=== PATIENT | male | born 1965 | race Two or more races ===

== ENCOUNTER 2019-02-05 12:22 | Emergency (ER) | payer SELFPAY ==
--- NOTE | 2019-02-05 12:40 | PDOC ---
Rapid Medical Evaluation Chief Complaint: CVA/TIA Time Seen by Provider: 02/05/19 12:33 Medical Evaluation: Allergies Allergy/AdvReac Type Severity Reaction Status Date / Time No Known Allergies Allergy Verified 02/05/19 12:32 02/05/19 12:34 Pt presents for difficulty moving his R lower leg and L arm for 6 hours. Was seen by Dr. Schroeder and was concerned he may be having a stroke/spinal fluid leak? Requesting a head CT. Hx of CVA in past Exam: neurologically intact with no focal findings. Strength 5/5 b/l. (+) straight leg raise test on the R Orders: labs, ekg Pt to proceed to the ER for further evaluation Discharge Disposition - Diagnosis Leg weakness - Referrals - Patient Instructions - Post Discharge Activity
[2019-02-05 12:41] VITALS: BMI 25.8
--- NOTE | 2019-02-05 14:26 | PDOC ---
History of Present Illness - General Chief Complaint: CVA/TIA Stated Complaint: SENT BY PCP/FACE NUMBNESS Time Seen by Provider: 02/05/19 12:33 History Source: Patient Exam Limitations: No Limitations - History of Present Illness Initial Comments: 02/05/19 14:28 53-year-old male presents the emergency room for evaluation of right leg and left arm tingling and discomfort since awakening this morning. Patient went to his pain management doctor who prescribes him Flexeril along with Neurontin but states the pain management physician was concerned with possible stroke/bleed and sent him to the emergency room. Patient denies increasing weakness but states due to discomfort it causes him difficulty with ambulation. Patient denies any skin discoloration, lower extremity edema, or recent injury to the affected area. Is this a multiple visit Asthma Patient?: No Timing/Duration: other (Since awakening this morning) Severity: mild, moderate Associated Symptoms: reports: other Past History - Travel Traveled outside of the country in the last 30 days: No Close contact w/someone who was outside of country & ill: No - Past Medical History Allergies/Adverse Reactions: Allergies Allergy/AdvReac Type Severity Reaction Status Date / Time No Known Allergies Allergy Verified 02/05/19 12:32 COPD: No Thyroid Disease: Yes - Immunization History Immunization Up to Date: Yes - Psycho Social/Smoking Cessation Hx Smoking History: Never smoked Information on smoking cessation initiated: No Hx Alcohol Use: No Drug/Substance Use Hx: No Patient Lives Alone: No Lives with/in: spouse/SO Review of Systems - Review of Systems Able to Perform ROS?: No Is the patient limited Vincentian proficient: No Constitutional: No: Symptoms Reported HEENTM: No: Symptoms Reported Respiratory: No: Symptoms reported Cardiac (ROS): No: Symptoms Reported ABD/GI: No: Symptoms Reported : No: Symptoms Reported Musculoskeletal: Yes: See HPI, Muscle Pain Integumentary: No: Symptoms Reported Neurological: Yes: Tingling. No: Numbness, Paresthesia, Weakness Endocrine: No: Symptoms Reported Hematologic/Lymphatic: No: Symptoms Reported *Physical Exam - Vital Signs Last Vital Signs Temp Pulse Resp BP Pulse Ox 97.8 F 77 18 151/103 H 97 02/05/19 12:34 02/05/19 12:34 02/05/19 12:34 02/05/19 12:34 02/05/19 12:34 - Physical Exam General Appearance: Yes: Nourished, Appropriately Dressed. No: Apparent Distress Neck: positive: Normal Thyroid Respiratory/Chest: positive: Lungs Clear, Normal Breath Sounds. negative: Respiratory Distress, Accessory Muscle Use Cardiovascular: positive: Regular Rhythm, Regular Rate. negative: Murmur Gastrointestinal/Abdominal: positive: Soft. negative: Tenderness Musculoskeletal: negative: Vertebral Tenderness Extremity: positive: Normal Capillary Refill, Normal Inspection, Normal Range of Motion. negative: Tender, Pedal Edema, Calf Tenderness Integumentary: positive: Normal Color, Warm, Moist Neurologic: positive: Motor Strength 5/5 (Ambulatory with cane. 5+ straight leg raise of the right lower extremity and left arm). negative: Sensory Deficit Heart Score/ECG Review - ECG Intrepretation Rhythm: Regular Rhythm (rate 79, nsr) ED Treatment Course - LABORATORY CBC & Chemistry Diagram: 02/05/19 15:45 02/05/19 15:45 Medical Decision Making - Medical Decision Making 02/05/19 14:09 Chief complaint: Right leg and left arm pain upon awakening this a.m. causing him difficulty to ambulate. Patient went to his pain management since he has neuropathy and is taking Neurontin and Flexeril for the above. Patient sent here for evaluation for possible bleed versus infarct. Exam: Patient with no neurofocal deficits BP slightly elevated /no sensory deficits, EKG normal sinus rhythm Plan: Labs, EKG and head CT ordered 02/05/19 15:[address] negative for acute pathology. Patient awaiting labs. 02/05/19 17:03 Laboratory Tests 02/05/19 02/05/19 02/05/19 15:45 15:45 15:45 WBC 5.2 Hgb 16.6 Hct 48.9 Absolute Neuts (auto) 0.9 L Neutrophils % 17.4 L Lymphocytes % 52.2 H Monocytes % 26.1 H INR Sodium 136 Potassium 4.0 Carbon Dioxide 26 BUN 14.8 Creatinine 0.9 Calcium 9.4 Total Bilirubin 0.6 AST 21 ALT 26 Alkaline Phosphatase 90 Troponin I < 0.02 02/05/19 15:45 WBC Hgb Hct Absolute Neuts (auto) Neutrophils % Lymphocytes % Monocytes % INR 0.96 Sodium Potassium Carbon Dioxide BUN Creatinine Calcium Total Bilirubin AST ALT Alkaline Phosphatase Troponin I .Will be sent home to follow-up with pain management. Discharge - Discharge Information Problems reviewed: Yes Clinical Impression/Diagnosis: Leg pain, right, Left arm pain Condition: Good Disposition: HOME - Follow up/Referral - Patient Discharge Instructions Patient Printed Discharge Instructions: Neuropathic Pain Additional Instructions: Please continue with your medication as prescribed by your pain management. Please follow-up with your neurologist as needed. If your symptoms worsen despite follow-up please return to the nearest ED. - Post Discharge Activity
[2019-02-05 16:18] LABS: EOS % 4.3 % (0-4.5); HEMATOCRIT 48.9 % (35.4-49); HEMOGLOBIN 16.6 GM/dL (11.7-16.9); LYMPH % 52.2 % (8-40); MCH 30.7 pg (25.7-33.7); MEAN CELL VOLUME 90.1 fl (80-96); MONO % 26.1 % (3.8-10.2); NEUT % 17.4 % (42.8-82.8); PLATELET COUNT 256 K/MM3 (134-434); RBC 5.42 M/mm3 (4.00-5.60); RDW 13.8 % (11.9-15.9); WHITE BLOOD COUNT 5.2 K/mm3 (4.0-10.0)
[2019-02-05 16:24] LABS: INR 0.96 (0.83-1.09); PROTHROMBIN TIME (PATIENT) 11.3 SEC (9.7-13.0)
[2019-02-05 16:51] LABS: BILIRUBIN,TOTAL 0.6 mg/dL (0.2-1); BLOOD UREA NITROGEN 14.8 mg/dL (7-18); CALCIUM 9.4 mg/dL (8.5-10.1); CREATININE 0.9 mg/dL (0.55-1.3); TOT PROT 7.7 g/dl (6.4-8.2)
[2019-02-05 17:37] LABS: PLATELET ESTIMATE ADEQUATE
[2019-02-05 18:06] VITALS: BP 124/86; PULSE 78; TEMP 98
--- NOTE | 2019-02-06 09:56 | EKG ---
Test Reason : Blood Pressure : / mmHG Vent. Rate : 079 BPM Atrial Rate : 079 BPM P-R Int : 156 ms QRS Dur : 076 ms QT Int : 378 ms P-R-T Axes : 057 012 043 degrees QTc Int : 433 ms NORMAL SINUS RHYTHM NORMAL ECG NO PREVIOUS ECGS AVAILABLE Confirmed by MD VANNESSA, GONZALES ([id number]) on 02/06/2019 9:56:04 AM Referred By: Confirmed By:GONZALES HURD MD
== END 2019-02-05 17:40 | disposition home or self-care (01) ==
LOC: JER 12:22
DX: G62.9 Polyneuropathy, unspecified (principal); M79.2 Neuralgia and neuritis, unspecified; Z86.73 Personal history of transient ischemic attack (TIA), and cerebral infarction without residual deficits
CPT/HCPCS: 36415; 70450-TC; 80053; 82550; 82553; 84484; 85025; 85610; 93005; 93010; 99283-25